=== PATIENT | female | born 1975 | race Hispanic/Latino ===

== ENCOUNTER 2017-10-11 15:29 | Outpatient (CLI) | payer BC | END 2017-10-11 15:30 | disposition home or self-care (01) | LOC: BICMAMMO 15:29 | PROVIDERS: ATTEND Family Medicine | DX: Z12.31 Encounter for screening mammogram for malignant neoplasm of breast (principal) | CPT/HCPCS: 77063; 77067 ==

== ENCOUNTER 2018-10-24 14:54 | Outpatient (CLI) | payer BC ==
--- NOTE | 2018-10-24 15:38 | MMO ---
Bilateral MAMMO Bilat Screen [facility]. CLINICAL HISTORY: Patient is 43 years old and is seen for screening. The patient has no family history of breast cancer. The patient has no personal history of cancer. VIEWS: The views performed were: bilateral craniocaudal with tomosynthesis and bilateral mediolateral oblique with tomosynthesis. FILMS COMPARED: The present examination has been compared to a prior imaging study performed at [facility] on 10/11/2017. MAMMOGRAM FINDINGS: There are scattered fibroglandular densities. There are no suspicious masses, suspicious calcifications, or new areas of architectural distortion. IMPRESSION: THERE IS NO MAMMOGRAPHIC EVIDENCE OF MALIGNANCY. A ROUTINE FOLLOW-UP MAMMOGRAM IN 1 YEAR IS RECOMMENDED. THE RESULTS OF THIS EXAM WERE SENT TO THE PATIENT. ACR BI-RADS Category 1 - Negative MAMMOGRAPHY NOTE: 1. A negative mammogram report should not delay a biopsy if a dominant of clinically suspicious mass is present. 2. Approximately 10% to 15% of breast cancers are not detected by mammography. 3. Adenosis and dense breasts may obscure an underlying neoplasm.
== END 2018-10-24 14:55 | disposition home or self-care (01) ==
LOC: BICMAMMO 14:54
PROVIDERS: ATTEND Family Medicine
DX: Z12.31 Encounter for screening mammogram for malignant neoplasm of breast (principal)
CPT/HCPCS: 77063; 77067

== ENCOUNTER 2019-01-31 09:46 | Outpatient (CLI) | payer BC ==
--- NOTE | 2019-01-31 10:50 | MRI ---
MRI lumbar spine noncontrast: HISTORY: Acute low back pain, radiating down to the buttocks times many years. COMPARISON: Prior MRIs are not available. FINDINGS: Appropriate T1 marrow signal intensity lumbar vertebra. Lumbar spine vertebral body height is [place]. No fracture. No significant STIR hyperintensity to suggest vertebral body edema or ligamentous injury. Type II Modic changes at the L5-S1 disc space. Conus medullaris terminates at the inferior aspect of L1 Symmetric signal intensity of the paraspinal muscles. Appropriate signal intensity visualized solid o rgans T12-L1:Adequate disc hydration. No significant central canal stenosis or neural foraminal narrowing L1-L2:Adequate disc hydration. No significant central canal stenosis or neural foraminal narrowing L2-L3:Adequate disc hydration. No significant central canal stenosis or neural foraminal narrowing L3-L4:Adequate disc hydration. No significant central canal stenosis or neural foraminal narrowing L4-L5:Adequate disc hydration. No significant central canal stenosis or neural foraminal narrowing L5-S1:Adequate disc hydration. No significant loss of disc space height. Central disc protrusion with a small inferior slightly right subicular disc extrusion. There is no significant stenosis of the thecal sac or left subarticular zone. Disc material abuts and slightly displaces the traversing right S1 nerve root. Mild bilateral neural foraminal narrowing. IMPRESSION: Degenerative disc disease at L5-S1 as described above.
--- NOTE | 2019-01-31 10:56 | RAD ---
Exam: LUMBAR SPINE 4 VIEWS: HISTORY: Acute low back pain. FINDINGS: Weightbearing views were performed in the AP, lateral neutral, lateral flexion and extension views. FINDINGS: Five lumbar type vertebral bodies. Lumbar spine vertebral body height is maintained. No fracture. In the neutral position, no spondylolisthesis. Upon extension or flexion, no spondylolysis. Disc space heights are preserved. IMPRESSION: No radiographic evidence of significant degenerative change. Transcribed Date/Time: 01/31/2019 11:17 AM
== END 2019-01-31 09:47 | disposition home or self-care (01) ==
LOC: BICMRI 09:46
PROVIDERS: ATTEND Neurological Surgery
DX: M54.5 Low back pain (principal); M51.37 Other intervertebral disc degeneration, lumbosacral region
CPT/HCPCS: 72110; 72148

== ENCOUNTER 2020-03-08 15:30 | Outpatient (CLI) | payer BC ==
--- NOTE | 2020-03-08 15:39 | MMO ---
Bilateral MAMMO Bilat Screen [facility]. CLINICAL HISTORY: Patient is 44 years old and is seen for screening. The patient has no family history of breast cancer. The patient has no personal history of cancer. VIEWS: The views performed were: bilateral craniocaudal with tomosynthesis and bilateral mediolateral oblique with tomosynthesis. FILMS COMPARED: The present examination has been compared to prior imaging studies performed at [facility] on 10/11/2017 and 10/24/2018. This study has been interpreted with the assistance of computer-aided detection. MAMMOGRAM FINDINGS: There are no suspicious masses, suspicious calcifications, or new areas of architectural distortion. IMPRESSION: THERE IS NO MAMMOGRAPHIC EVIDENCE OF MALIGNANCY. A ROUTINE FOLLOW-UP MAMMOGRAM IN 1 YEAR IS RECOMMENDED. THE RESULTS OF THIS EXAM WERE SENT TO THE PATIENT. ACR BI-RADS Category 1 - Negative MAMMOGRAPHY NOTE: 1. A negative mammogram report should not delay a biopsy if a dominant of clinically suspicious mass is present. 2. Approximately 10% to 15% of breast cancers are not detected by mammography. 3. Adenosis and dense breasts may obscure an underlying neoplasm. Reported by: WENDI SORIANO MD Electonically Signed: [id number]
== END 2020-03-08 15:31 | disposition home or self-care (01) ==
LOC: BICMAMMO 15:30
PROVIDERS: ATTEND Family Medicine
DX: Z12.31 Encounter for screening mammogram for malignant neoplasm of breast (principal)
CPT/HCPCS: 77063; 77067

== ENCOUNTER 2021-03-31 15:50 | Outpatient (CLI) | payer BC | END 2021-03-31 15:51 | disposition home or self-care (01) | LOC: BICMAMMO 15:50 | PROVIDERS: ATTEND Family Medicine | DX: Z12.31 Encounter for screening mammogram for malignant neoplasm of breast (principal) | CPT/HCPCS: 77063; 77067 ==

== ENCOUNTER 2022-01-09 15:47 | Outpatient (CLI) | payer BC | END 2022-01-09 15:48 | disposition home or self-care (01) | LOC: BICULT 15:47 | PROVIDERS: ATTEND Family Medicine | DX: E28.8 Other ovarian dysfunction (principal) | CPT/HCPCS: 76856 ==

== ENCOUNTER 2022-04-02 15:46 | Outpatient (CLI) | payer BC | END 2022-04-02 15:47 | disposition home or self-care (01) | LOC: BICMAMMO 15:46 | PROVIDERS: ATTEND Family Medicine | DX: Z12.31 Encounter for screening mammogram for malignant neoplasm of breast (principal) | CPT/HCPCS: 77063; 77067 ==

== ENCOUNTER 2023-04-13 12:42 | Outpatient (CLI) | payer BC | END 2023-04-13 12:43 | disposition home or self-care (01) | LOC: BICMAMMO 12:42 | PROVIDERS: ATTEND Family Medicine | DX: Z12.31 Encounter for screening mammogram for malignant neoplasm of breast (principal) | CPT/HCPCS: 77063; 77067 ==

== ENCOUNTER 2024-01-11 06:58 | Outpatient (CLI) | payer BC | END 2024-01-11 06:59 | disposition home or self-care (01) | LOC: BICULT 06:58 | PROVIDERS: ATTEND Family Medicine | DX: N92.0 Excessive and frequent menstruation with regular cycle (principal) | CPT/HCPCS: 76856 ==

== ENCOUNTER 2024-04-17 15:32 | Outpatient (CLI) | payer BC | END 2024-04-17 15:33 | disposition home or self-care (01) | LOC: BICMAMMO 15:32 | PROVIDERS: ATTEND Family Medicine | DX: Z12.31 Encounter for screening mammogram for malignant neoplasm of breast (principal) | CPT/HCPCS: 77063; 77067 ==